=== PATIENT | female | born 1965 | race Caucasian/White ===

== ENCOUNTER 2025-03-18 19:22 | Emergency (ER) | payer OTHER, SELFPAY ==
[2025-03-18 19:26] VITALS: BP 143/97
--- NOTE | 2025-03-18 21:14 | ED.GENMED ---
History of Present Illness
General
Chief Complaint: Musculo-Skeletal Complaint
Time Seen by Provider: 03/18/25 20:11
History of Present Illness
History of Present Illness:
59-year-old female presenting with right foot pain. Patient states that on Friday she was walking down an incline driveway when she tripped over her flip-flop and inverted her right foot falling her left side. Patient denies striking her head or
loss of consciousness. 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 Patient was placed in posterior
short leg splint, given crutches and advised follow-up with orthopedics. Patient states that today while she went to go sit down using crutches she lost her balance and injured her right foot/ankle again. Patient denies striking her head or loss
of consciousness. Patient denies other injuries. Patient denies numbness, weakness or tingling.
Past History
Past History
ED Past Medical History: Cancer (Vaginal)
ED Past Surgical History: Orthopedic (Right lower extremity)
Social History
Tobacco: Non-smoker
Alcohol: None
Drug: None
Personal:
Living: with family
Phy Exam
Physical Exam
Physical Exam:
General: Alert, no acute distress
Head: NCAT
Eyes: clear conjunctiva
Neck: supple
Cardiac: regular rate and rhythm, no murmur
Lungs: clear to auscultation bilaterally. No wheezes, rales, or rhonchi. Speaking full unlabored sentences. No respiratory distress.
Abdomen: soft, nondistended nontender. No rebound or guarding.
MSK: Swelling and ecchymosis to right lateral ankle/base of fifth metatarsal. Tenderness palpation to base of the right fifth metatarsal. 2+ right DP pulse. Right foot neurovascularly intact. No tenderness palpation to right lateral or medial
malleoli
Skin: warm, dry
Neuro: Alert and oriented x3. no focal deficits
Course
Orders/Labs/Results
Orders:
Orders
03/18/25 19:29
Ankle, Right 3 view CR [CR Ankle - Right Min 3 Views *] Urgent
Comment: known metatarsal fx pain worse after new fall
Reason For Exam: pain/trauma/multiple falls
CR Foot - Right Min 3 Views Urgent
Comment: after fall today
Reason For Exam: pain, trauma; known metatarsal fx, pain worse
Vital Signs
Initial and Last Documented VS:
Initial Vital Signs
Temp Pulse Resp BP Pulse Ox
98.1 F 81 18 143/97 98
03/18/25 19:26 03/18/25 19:26 03/18/25 19:26 03/18/25 19:26 03/18/25 19:26
Last Documented Vital Signs
Temp Pulse Resp BP Pulse Ox
98.1 F 75 16 135/75 97
03/18/25 19:26 03/18/25 21:38 03/18/25 21:38 03/18/25 21:38 03/18/25 21:38
MDM/Problems Addressed
MDM/Problems Addressed:
59-year-old female presenting with right foot/ankle pain status post mechanical fall. X-ray reviewed, fracture of the base right fifth metatarsal with minimal distraction, no additional fracture. Discussed results with patient at bedside. Patient
has appointment with [facility] orthopedics on Wednesday 03/21. Will reapply right posterior short leg splint, patient already has crutches, stable for discharge with orthopedic follow-up on Friday. Advised nonweight bearing. Pt expressed verbal
understanding
*Pulse Oximetry
SaO2: 98
Oxygen Mode of Delivery: Room air
Patient hypoxic: no
*Critical Care Note
Total Time (30-74mins, 75-104mins- exclusive of procedures): Not Applicable
ED Attending Note
-
Portions of this chart may have been created with voice recognition software.� Occasional wrong word or��sound alike� substitutions may have occurred due to the inherent limitations of voice recognition software.
Discharge Plan
Departure
Patient Disposition: Home (Routine Discharge)
Date of Disposition: 03/18/25
Time of Disposition: 21:18
Patient with high blood pressure during this ER visit?: Yes
Discharge Problem:
Fracture of fifth metatarsal bone of right foot
Instructions: Foot Fracture ED, BLOOD PRESSURE
Referrals:
Mattie To MD [Family Provider, Family Practice]
Baron Bean MD [Active, Orthopedics]
Activity Restrictions/Additional Instructions:
Follow-up with orthopedics as scheduled on Friday. Contact information for second opinion orthopedics attached as requested
Rest, ice, elevation
Use crutches. Do not bear weight on right foot.
Take Tylenol 975 mg every 6 hours and/or ibuprofen 800 mg every 8 hours with food as needed for pain
Return to emergency department for new/worsening symptoms
Interventions
Interventions:
*Risk Screen - Suicide Last Done: 03/18/25 21:33
*General Assessment Last Done: 03/18/25 21:33
*Neglect/Abuse Screening Last Done: 03/18/25 21:33
*ED- Fall Risk Assessment Last Done: 03/18/25 21:33
*Nursing Disposition Last Done: 03/18/25 21:39
ED-Musculoskeletal Assessment Last Done: 03/18/25 21:33
Discharge Date and Time
Discharge Date/Time: 03/18/25 21:40
Print Language: MALDIVIAN
[2025-03-18 21:38] VITALS: BP 135/75
== END 2025-03-18 21:40 | disposition home or self-care (01) ==
LOC: EMR 19:22
PROVIDERS: EMERGENCY PHYSICIAN Emergency Medicine; FAMILY PHYSICIAN Family Medicine
DX: S92.351A Displaced fracture of fifth metatarsal bone, right foot, initial encounter for closed fracture (principal); W01.0XXA Fall on same level from slipping, tripping and stumbling without subsequent striking against object, initial encounter; X50.1XXA Overexertion from prolonged static or awkward postures, initial encounter; Y93.01 Activity, walking, marching and hiking; R29.6 Repeated falls; Z85.42 Personal history of malignant neoplasm of other parts of uterus
CPT/HCPCS: 99283; 73610; 73630